=== PATIENT | female | born 1995 | race African-American/Black ===

== ENCOUNTER 2020-08-25 16:43 | Emergency (ER) | payer MEDICAID ==
[~2020-08-25] VITALS: Ht 157.5 cm; Wt 59.0 kg
[2020-08-25] MEDS ORDERED: SODIUM CHLORIDE 0.9% 1,000 ML IV ONE (17:30)
[2020-08-25 18:00] VITALS: BP 102/57
== END 2020-08-25 19:03 | disposition home or self-care (01) ==
LOC: ER 16:43
DX: R55 Syncope and collapse (principal); E86.0 Dehydration; F12.10 Cannabis abuse, uncomplicated
CPT/HCPCS: 96360; 99283; J7030

== ENCOUNTER 2021-06-13 14:07 | Emergency (ER) | payer MEDICAID ==
[~2021-06-13] VITALS: Ht 172.7 cm; Wt 73.0 kg
[2021-06-13 14:22] VITALS: BP 121/79
== END 2021-06-13 16:32 | disposition left against medical advice (07) ==
LOC: ER 14:28
DX: R05 Cough (principal); Z53.21 Procedure and treatment not carried out due to patient leaving prior to being seen by health care provider